=== PATIENT | male | born 1950 | race Caucasian/White ===

== ENCOUNTER 2021-02-18 17:37 | Inpatient (IN) | payer OTHER ==
[2021-02-18] MEDS ORDERED: ALBUTEROL SO4 2.5/IPRATROPIUM 0.5 INH SOL 3 ML VIAL.NEB. NEB ONE ×2 (18:22→18:29)
[2021-02-18] MEDS ORDERED: methylPREDNISolone NA SUCC 125 MG/2 ML VIAL IVPUSH ONE (18:22)
[2021-02-18] MEDS ORDERED: methylPREDNISolone NA SUCC 125 MG/2 ML VIAL ONE (18:28)
[2021-02-18 19:12] LABS: BASO % 0.2 % (0-2.0); HEMATOCRIT 33.6 % (35.4-49); HEMOGLOBIN 11.3 GM/dL (11.7-16.9); MCH 28.1 pg (25.7-33.7); MCHC 33.6 g/dl (32.0-35.9); MEAN CELL VOLUME 83.4 fl (80-96); MEAN PLT VOLUME 7.6 fl (7.5-11.1); MONO % 9.9 % (3.8-10.2); NEUT % 78.9 % (42.8-82.8); PLATELET COUNT 347 10^3/uL (134-434); RBC 4.03 M/mm3 (4.00-5.60); RDW 13.9 % (11.9-15.9); WHITE BLOOD COUNT 6.7 K/mm3 (4.0-10.0)
[2021-02-18 19:26] LABS: INR 1.04 (0.83-1.09); PROTHROMBIN TIME (PATIENT) 12.8 SEC (9.7-13.0)
[2021-02-18 19:29] LABS: ACTIVATED PTT 28.5 SECONDS (25.2-36.5)
[2021-02-18 19:49] LABS: CHLORIDE 103 mmol/L (98-107); SODIUM 138 mmol/L (136-145)
[2021-02-18 19:51] LABS: ALBUMIN 2.8 g/dl (3.4-5.0); BLOOD UREA NITROGEN 20.9 mg/dL (7-18)
[2021-02-18 19:52] LABS: ANION GAP 5 MMOL/L (8-16); CO2 30 mmol/L (21-32); GLUCOSE,RANDOM 102 mg/dL (74-106)
[2021-02-18 19:55] LABS: CREATININE 0.7 mg/dL (0.55-1.3); SGOT/AST 23 U/L (15-37); SGPT/ALT 17 U/L (13-61)
[2021-02-18 19:56] LABS: BILIRUBIN,TOTAL 0.1 mg/dL (0.2-1); TOT PROT 7.1 g/dl (6.4-8.2)
[2021-02-18 19:57] LABS: ALK PHOS 74 U/L (45-117)
[2021-02-19] MEDS ORDERED: ALBUTEROL SO4 2.5/IPRATROPIUM 0.5 INH SOL 3 ML VIAL.NEB. NEB PRN (05:30)
[2021-02-19] MEDS ORDERED: methylPREDNISolone NA SUCC 40 MG/1 ML VIAL IVPUSH SCH (06:00)
[2021-02-19 06:44] LABS: HEMOGLOBIN 11.2 GM/dL (11.7-16.9); MCHC 33.1 g/dl (32.0-35.9); MEAN CELL VOLUME 84.6 fl (80-96); MEAN PLT VOLUME 8.1 fl (7.5-11.1); PLATELET COUNT 348 10^3/uL (134-434); RBC 4.02 M/mm3 (4.00-5.60); WHITE BLOOD COUNT 3.9 K/mm3 (4.0-10.0)
[2021-02-19 07:12] LABS: ALBUMIN 2.7 g/dl (3.4-5.0); CALCIUM 9.2 mg/dL (8.5-10.1)
[2021-02-19 07:13] LABS: BLOOD UREA NITROGEN 26.5 mg/dL (7-18); MAGNESIUM 2.2 mg/dL (1.8-2.4)
[2021-02-19 07:15] LABS: CREATININE 0.9 mg/dL (0.55-1.3); PHOSPHOROUS 3.3 mg/dL (2.5-4.9)
[2021-02-19 07:17] LABS: BILIRUBIN,TOTAL 0.2 mg/dL (0.2-1); TOT PROT 7.1 g/dl (6.4-8.2)
[2021-02-19] MEDS ORDERED: DEXTROSE 50%-WATER - 25 GM/50 ML VIAL IVPUSH ONE (08:02)
[2021-02-19] MEDS ORDERED: INSULIN REGULAR HUMAN 100 UNITS/ML *VIAL IVPUSH ONE (08:02)
[2021-02-19 08:32] LABS: IRON SERUM 16 ug/dL (50-175); TOTAL IRON BINDING CAPACITY 322 ug/dL (250-450)
[2021-02-19] MEDS ORDERED: DEXTROSE 50%-WATER 25 GM/50 ML DISP.SYRIN ONE (09:20)
[2021-02-19] MEDS ORDERED: methylPREDNISolone NA SUCC 40 MG/1 ML VIAL ONE ×2 (09:21→18:04)
[2021-02-19 09:35] LABS: ANISOCYTOSIS 0; MACROCYTOSIS 0; PLATELET ESTIMATE NORMAL
[2021-02-19] MEDS ORDERED: BUDESONIDE/FORMETEROL FUMARATE 80/4.5 mcg INHALER IH SCH (10:00)
[2021-02-19] MEDS ORDERED: ENOXAPARIN NA (PORCINE) 40 MG/0.4 ML DISP.SYRIN SQ ONE (12:08)
[2021-02-19] MEDS: ENOXAPARIN NA (PORCINE) 40 MG/0.4 ML DISP.SYRIN SQ SCH (12:09)
[2021-02-19] MEDS ORDERED: ALBUTEROL SO4 0.083% IH SOL 2.5 MG/3 ML VIAL.NEB. NEB PRN (12:49)
[2021-02-19] MEDS ORDERED: ALBUTEROL SO4 0.083% IH SOL 2.5 MG/3 ML VIAL.NEB. NEB ONE (18:03)
[2021-02-19] MEDS ORDERED: ALBUTEROL SO4 2.5/IPRATROPIUM 0.5 INH SOL 3 ML VIAL.NEB. NEB ONE (18:04)
[2021-02-19] MEDS: methylPREDNISolone NA SUCC 40 MG/1 ML VIAL IVPUSH SCH (18:07)
[2021-02-19] MEDS: ALBUTEROL SO4 2.5/IPRATROPIUM 0.5 INH SOL 3 ML VIAL.NEB. NEB SCH ×2 (18:07→21:30)
[2021-02-19] MEDS ORDERED: methylPREDNISolone 2 MG TABLET PO SCH (22:00)
[2021-02-20] MEDS: methylPREDNISolone NA SUCC 40 MG/1 ML VIAL IVPUSH SCH ×2 (02:25→09:37)
[2021-02-20 07:07] LABS: HEMOGLOBIN 10.5 GM/dL (11.7-16.9); MCH 28.3 pg (25.7-33.7); MCHC 33.9 g/dl (32.0-35.9); MEAN CELL VOLUME 83.6 fl (80-96); MEAN PLT VOLUME 8.2 fl (7.5-11.1); PLATELET COUNT 334 10^3/uL (134-434); RBC 3.71 M/mm3 (4.00-5.60); RDW 13.7 % (11.9-15.9); WHITE BLOOD COUNT 13.6 K/mm3 (4.0-10.0)
[2021-02-20 07:35] LABS: ALBUMIN 2.6 g/dl (3.4-5.0); BLOOD UREA NITROGEN 34.1 mg/dL (7-18); CALCIUM 8.7 mg/dL (8.5-10.1); MAGNESIUM 2.2 mg/dL (1.8-2.4)
[2021-02-20 07:38] LABS: PHOSPHOROUS 3.3 mg/dL (2.5-4.9)
[2021-02-20 07:39] LABS: CREATININE 0.8 mg/dL (0.55-1.3)
[2021-02-20 07:40] LABS: BILIRUBIN,TOTAL 0.2 mg/dL (0.2-1); TOT PROT 6.7 g/dl (6.4-8.2)
[2021-02-20] MEDS: ALBUTEROL SO4 2.5/IPRATROPIUM 0.5 INH SOL 3 ML VIAL.NEB. NEB SCH ×4 (07:54→19:49)
[2021-02-20] MEDS ORDERED: INSULIN REGULAR HUMAN 100 UNITS/ML *VIAL IVPUSH ONE (08:16)
[2021-02-20] MEDS ORDERED: DEXTROSE 50%-WATER - 25 GM/50 ML VIAL IVPUSH ONE (08:30)
[2021-02-20 16:38] VITALS: BMI 15.0
[2021-02-20] MEDS ORDERED: methylPREDNISolone NA SUCC 40 MG/1 ML VIAL IVPUSH SCH (22:00)
[2021-02-21] MEDS: ALBUTEROL SO4 2.5/IPRATROPIUM 0.5 INH SOL 3 ML VIAL.NEB. NEB SCH ×4 (07:50→20:04)
[2021-02-21 08:25] LABS: HEMATOCRIT 37.1 % (35.4-49); HEMOGLOBIN 12.3 GM/dL (11.7-16.9); MCH 28.1 pg (25.7-33.7); MCHC 33.3 g/dl (32.0-35.9); MEAN CELL VOLUME 84.5 fl (80-96); MEAN PLT VOLUME 8.1 fl (7.5-11.1); PLATELET COUNT 393 10^3/uL (134-434); RBC 4.39 M/mm3 (4.00-5.60); RDW 14.1 % (11.9-15.9); WHITE BLOOD COUNT 14.3 K/mm3 (4.0-10.0)
[2021-02-21 08:44] LABS: ALBUMIN 2.9 g/dl (3.4-5.0); CALCIUM 8.7 mg/dL (8.5-10.1); MAGNESIUM 2.3 mg/dL (1.8-2.4)
[2021-02-21 08:47] LABS: CREATININE 0.8 mg/dL (0.55-1.3)
[2021-02-21 08:48] LABS: PHOSPHOROUS 2.6 mg/dL (2.5-4.9)
[2021-02-21 08:49] LABS: BILIRUBIN,TOTAL 0.3 mg/dL (0.2-1); TOT PROT 7.2 g/dl (6.4-8.2)
[2021-02-21] MEDS: ENOXAPARIN NA (PORCINE) 40 MG/0.4 ML DISP.SYRIN SQ SCH (09:47)
[2021-02-21] MEDS ORDERED: methylPREDNISolone NA SUCC 40 MG/1 ML VIAL IVPUSH SCH (10:00)
[2021-02-21] MEDS: methylPREDNISolone NA SUCC 40 MG/1 ML VIAL IVPUSH SCH (22:09)
[2021-02-22] MEDS: ALBUTEROL SO4 2.5/IPRATROPIUM 0.5 INH SOL 3 ML VIAL.NEB. NEB SCH ×4 (08:35→20:09)
[2021-02-22] MEDS: ENOXAPARIN NA (PORCINE) 40 MG/0.4 ML DISP.SYRIN SQ SCH (09:11)
[2021-02-22] MEDS: methylPREDNISolone NA SUCC 40 MG/1 ML VIAL IVPUSH SCH ×2 (09:11→22:02)
[2021-02-22 09:17] LABS: HEMATOCRIT 35.1 % (35.4-49); HEMOGLOBIN 11.4 GM/dL (11.7-16.9); MCH 27.8 pg (25.7-33.7); MCHC 32.6 g/dl (32.0-35.9); MEAN CELL VOLUME 85.3 fl (80-96); RBC 4.12 M/mm3 (4.00-5.60); WHITE BLOOD COUNT 11.3 K/mm3 (4.0-10.0)
[2021-02-22 09:18] LABS: BASO % 0.1 % (0-2.0); LYMPH % 5.5 % (8-40); MEAN PLT VOLUME 8.1 fl (7.5-11.1); MONO % 4.5 % (3.8-10.2); NEUT % 89.9 % (42.8-82.8); PLATELET COUNT 341 10^3/uL (134-434); RDW 14.2 % (11.9-15.9)
[2021-02-22 09:53] LABS: GLUCOSE,RANDOM 97 mg/dL (74-106)
[2021-02-22 09:54] LABS: BLOOD UREA NITROGEN 21.2 mg/dL (7-18); CALCIUM 8.6 mg/dL (8.5-10.1); CHLORIDE 101 mmol/L (98-107); CO2 31 mmol/L (21-32); CREATININE 0.8 mg/dL (0.55-1.3); SODIUM 138 mmol/L (136-145)
[2021-02-23 06:28] LABS: BASO % 0.2 % (0-2.0); HEMATOCRIT 35.3 % (35.4-49); HEMOGLOBIN 11.5 GM/dL (11.7-16.9); MCH 27.6 pg (25.7-33.7); MCHC 32.5 g/dl (32.0-35.9); MEAN CELL VOLUME 84.8 fl (80-96); MEAN PLT VOLUME 7.7 fl (7.5-11.1); MONO % 4.7 % (3.8-10.2); NEUT % 90.1 % (42.8-82.8); PLATELET COUNT 363 10^3/uL (134-434); RBC 4.17 M/mm3 (4.00-5.60); RDW 14.6 % (11.9-15.9); WHITE BLOOD COUNT 13.2 K/mm3 (4.0-10.0)
[2021-02-23 06:47] LABS: CALCIUM 8.7 mg/dL (8.5-10.1)
[2021-02-23 06:48] LABS: ALBUMIN 2.6 g/dl (3.4-5.0); BLOOD UREA NITROGEN 21.8 mg/dL (7-18); MAGNESIUM 2.5 mg/dL (1.8-2.4)
[2021-02-23 06:51] LABS: CREATININE 0.8 mg/dL (0.55-1.3)
[2021-02-23 06:52] LABS: BILIRUBIN,TOTAL 0.3 mg/dL (0.2-1); TOT PROT 6.4 g/dl (6.4-8.2)
[2021-02-23] MEDS: ALBUTEROL SO4 2.5/IPRATROPIUM 0.5 INH SOL 3 ML VIAL.NEB. NEB SCH ×4 (07:20→20:10)
[2021-02-23] MEDS ORDERED: DEXTROSE 50%-WATER - 25 GM/50 ML VIAL IVPUSH ONE (07:30)
[2021-02-23] MEDS ORDERED: INSULIN REGULAR HUMAN 100 UNITS/ML *VIAL IVPUSH ONE (07:30)
[2021-02-23] MEDS ORDERED: DEXTROSE 50%-WATER 25 GM/50 ML DISP.SYRIN ONE (09:34)
[2021-02-23] MEDS: methylPREDNISolone NA SUCC 40 MG/1 ML VIAL IVPUSH SCH ×2 (09:36→21:03)
[2021-02-24 07:42] LABS: HEMATOCRIT 37.1 % (35.4-49); HEMOGLOBIN 12.5 GM/dL (11.7-16.9); MCH 28.4 pg (25.7-33.7); MCHC 33.6 g/dl (32.0-35.9); MEAN CELL VOLUME 84.3 fl (80-96); MEAN PLT VOLUME 7.7 fl (7.5-11.1); PLATELET COUNT 382 10^3/uL (134-434); RDW 14.3 % (11.9-15.9); WHITE BLOOD COUNT 10.1 K/mm3 (4.0-10.0)
[2021-02-24 08:02] LABS: ALBUMIN 2.7 g/dl (3.4-5.0)
[2021-02-24 08:03] LABS: MAGNESIUM 2.3 mg/dL (1.8-2.4)
[2021-02-24 08:05] LABS: BILIRUBIN,TOTAL 0.2 mg/dL (0.2-1); CREATININE 0.8 mg/dL (0.55-1.3); PHOSPHOROUS 3.8 mg/dL (2.5-4.9)
[2021-02-24 08:06] LABS: TOT PROT 6.7 g/dl (6.4-8.2)
[2021-02-24 08:10] LABS: BLOOD UREA NITROGEN 25.6 mg/dL (7-18)
[2021-02-24] MEDS: ALBUTEROL SO4 2.5/IPRATROPIUM 0.5 INH SOL 3 ML VIAL.NEB. NEB SCH ×4 (08:36→19:58)
[2021-02-24] MEDS: methylPREDNISolone NA SUCC 40 MG/1 ML VIAL IVPUSH SCH (09:52)
[2021-02-24] MEDS ORDERED: DEXTROSE 50%-WATER - 25 GM/50 ML VIAL IVPUSH ONE (15:10)
[2021-02-24] MEDS ORDERED: INSULIN REGULAR HUMAN 100 UNITS/ML *VIAL IVPUSH ONE (15:10)
[2021-02-24] MEDS ORDERED: DEXTROSE 50%-WATER - 25 GM/50 ML VIAL ONE (17:36)
[2021-02-24] MEDS: methylPREDNISolone 4 MG TABLET PO SCH (21:16)
[2021-02-25 06:42] LABS: BASO % 0.2 % (0-2.0); EOS % 0.1 % (0-4.5); HEMATOCRIT 36.2 % (35.4-49); HEMOGLOBIN 11.9 GM/dL (11.7-16.9); LYMPH % 6.6 % (8-40); MCH 27.8 pg (25.7-33.7); MCHC 32.8 g/dl (32.0-35.9); MEAN CELL VOLUME 84.6 fl (80-96); MEAN PLT VOLUME 7.7 fl (7.5-11.1); NEUT % 85.1 % (42.8-82.8); PLATELET COUNT 373 10^3/uL (134-434); RBC 4.28 M/mm3 (4.00-5.60); RDW 14.5 % (11.9-15.9); WHITE BLOOD COUNT 12.5 K/mm3 (4.0-10.0)
[2021-02-25 07:10] LABS: CALCIUM 8.8 mg/dL (8.5-10.1)
[2021-02-25 07:11] LABS: ALBUMIN 2.7 g/dl (3.4-5.0); MAGNESIUM 2.2 mg/dL (1.8-2.4)
[2021-02-25 07:14] LABS: CREATININE 0.9 mg/dL (0.55-1.3); PHOSPHOROUS 3.5 mg/dL (2.5-4.9)
[2021-02-25 07:15] LABS: BILIRUBIN,TOTAL 0.2 mg/dL (0.2-1); TOT PROT 6.5 g/dl (6.4-8.2)
[2021-02-25] MEDS ORDERED: INSULIN REGULAR HUMAN 100 UNITS/ML *VIAL IVPUSH ONE (07:22)
[2021-02-25] MEDS ORDERED: DEXTROSE 50%-WATER - 25 GM/50 ML VIAL IVPUSH ONE (07:22)
[2021-02-25] MEDS: ALBUTEROL SO4 2.5/IPRATROPIUM 0.5 INH SOL 3 ML VIAL.NEB. NEB SCH ×4 (08:00→20:02)
[2021-02-25] MEDS ORDERED: DEXTROSE 50%-WATER 25 GM/50 ML DISP.SYRIN ONE (09:12)
[2021-02-25] MEDS ORDERED: guaiFENesin/D-METHORPHAN HB 10 ML UNIT-DOSE CUPS PO PRN (09:31)
[2021-02-25] MEDS: PANTOPRAZOLE 40 MG TABLET PO SCH (11:21)
[2021-02-25] MEDS: ENOXAPARIN NA (PORCINE) 40 MG/0.4 ML DISP.SYRIN SQ SCH (11:21)
[2021-02-25] MEDS ORDERED: methylPREDNISolone 2 MG TABLET PO SCH ×2 (12:15→13:00)
[2021-02-25] MEDS: methylPREDNISolone 4 MG TABLET PO SCH (14:48)
[2021-02-26] MEDS: ALBUTEROL SO4 2.5/IPRATROPIUM 0.5 INH SOL 3 ML VIAL.NEB. NEB SCH ×4 (07:45→20:15)
[2021-02-26 08:02] LABS: HEMATOCRIT 35.1 % (35.4-49); HEMOGLOBIN 11.6 GM/dL (11.7-16.9); MCH 28.1 pg (25.7-33.7); MCHC 33.1 g/dl (32.0-35.9); MEAN CELL VOLUME 84.8 fl (80-96); MEAN PLT VOLUME 7.8 fl (7.5-11.1); PLATELET COUNT 370 10^3/uL (134-434); RBC 4.14 M/mm3 (4.00-5.60); RDW 14.5 % (11.9-15.9); WHITE BLOOD COUNT 10.6 K/mm3 (4.0-10.0)
[2021-02-26 08:14] LABS: ALBUMIN 2.6 g/dl (3.4-5.0); CALCIUM 8.4 mg/dL (8.5-10.1)
[2021-02-26 08:15] LABS: MAGNESIUM 2.4 mg/dL (1.8-2.4)
[2021-02-26 08:18] LABS: CREATININE 0.8 mg/dL (0.55-1.3); PHOSPHOROUS 3.7 mg/dL (2.5-4.9)
[2021-02-26 08:19] LABS: BILIRUBIN,TOTAL 0.2 mg/dL (0.2-1); TOT PROT 6.2 g/dl (6.4-8.2)
[2021-02-26] MEDS ORDERED: PT OWN MED DRAWER 7, Y5N ONE (10:21)
[2021-02-26] MEDS: ENOXAPARIN NA (PORCINE) 40 MG/0.4 ML DISP.SYRIN SQ SCH (10:28)
[2021-02-26] MEDS: PANTOPRAZOLE 40 MG TABLET PO SCH (10:29)
[2021-02-26] MEDS: methylPREDNISolone 4 MG TABLET PO SCH (10:29)
[2021-02-27 06:28] LABS: HEMATOCRIT 34.4 % (35.4-49); HEMOGLOBIN 11.5 GM/dL (11.7-16.9); MCH 28.4 pg (25.7-33.7); MCHC 33.4 g/dl (32.0-35.9); MEAN PLT VOLUME 7.9 fl (7.5-11.1); PLATELET COUNT 385 10^3/uL (134-434); RBC 4.04 M/mm3 (4.00-5.60); RDW 14.5 % (11.9-15.9); WHITE BLOOD COUNT 10.4 K/mm3 (4.0-10.0)
[2021-02-27 06:48] LABS: ALBUMIN 2.6 g/dl (3.4-5.0); BLOOD UREA NITROGEN 25.3 mg/dL (7-18); MAGNESIUM 2.5 mg/dL (1.8-2.4)
[2021-02-27 06:52] LABS: CREATININE 0.8 mg/dL (0.55-1.3); PHOSPHOROUS 3.6 mg/dL (2.5-4.9)
[2021-02-27 06:53] LABS: BILIRUBIN,TOTAL 0.2 mg/dL (0.2-1); TOT PROT 6.3 g/dl (6.4-8.2)
[2021-02-27] MEDS: ALBUTEROL SO4 2.5/IPRATROPIUM 0.5 INH SOL 3 ML VIAL.NEB. NEB SCH ×4 (07:40→19:49)
[2021-02-27] MEDS ORDERED: PT OWN MED DRAWER 7, Y5N ONE (08:55)
[2021-02-27] MEDS: PANTOPRAZOLE 40 MG TABLET PO SCH (09:26)
[2021-02-27] MEDS: ENOXAPARIN NA (PORCINE) 40 MG/0.4 ML DISP.SYRIN SQ SCH (09:26)
[2021-02-27] MEDS: methylPREDNISolone 4 MG TABLET PO SCH (09:27)
[2021-02-27] MEDS ORDERED: SENNOSIDES 8.8 MG/5 ML BULK BOTTLE PO PRN (10:03)
[2021-02-27] MEDS: POLYETHYLENE GLYCOL (HEALTHYLAX) 3350 17 GM PACKET PO SCH (10:52)
[2021-02-28] MEDS: ALBUTEROL SO4 2.5/IPRATROPIUM 0.5 INH SOL 3 ML VIAL.NEB. NEB SCH ×4 (08:36→20:21)
[2021-02-28] MEDS: ENOXAPARIN NA (PORCINE) 40 MG/0.4 ML DISP.SYRIN SQ SCH (09:12)
[2021-02-28] MEDS: POLYETHYLENE GLYCOL (HEALTHYLAX) 3350 17 GM PACKET PO SCH (09:12)
[2021-02-28] MEDS: PANTOPRAZOLE 40 MG TABLET PO SCH (09:13)
[2021-02-28 09:50] LABS: HEMATOCRIT 40.2 % (35.4-49); HEMOGLOBIN 13.3 GM/dL (11.7-16.9); MCH 28.5 pg (25.7-33.7); MCHC 33.2 g/dl (32.0-35.9); MEAN CELL VOLUME 85.9 fl (80-96); MEAN PLT VOLUME 7.9 fl (7.5-11.1); PLATELET COUNT 462 10^3/uL (134-434); RBC 4.68 M/mm3 (4.00-5.60); RDW 14.4 % (11.9-15.9); WHITE BLOOD COUNT 12.7 K/mm3 (4.0-10.0)
[2021-02-28 10:23] LABS: CALCIUM 9.2 mg/dL (8.5-10.1)
[2021-02-28 10:24] LABS: ALBUMIN 3.2 g/dl (3.4-5.0); BLOOD UREA NITROGEN 22.6 mg/dL (7-18); MAGNESIUM 2.3 mg/dL (1.8-2.4)
[2021-02-28 10:27] LABS: PHOSPHOROUS 4.1 mg/dL (2.5-4.9)
[2021-02-28 10:28] LABS: BILIRUBIN,TOTAL 0.3 mg/dL (0.2-1)
[2021-02-28 10:29] LABS: TOT PROT 7.7 g/dl (6.4-8.2)
[2021-02-28 10:32] LABS: CREATININE 0.8 mg/dL (0.55-1.3)
[2021-02-28] MEDS ORDERED: PT OWN MED DRAWER 7, Y5N ONE (21:12)
[2021-02-28] MEDS: SODIUM ZIRCONIUM CYCLOSILICATE (LOKELMA) 5 GM PACKET PO SCH (21:35)
[2021-03-01] MEDS: ALBUTEROL SO4 2.5/IPRATROPIUM 0.5 INH SOL 3 ML VIAL.NEB. NEB SCH ×4 (08:13→20:23)
[2021-03-01 08:40] LABS: MCH 28.4 pg (25.7-33.7); MCHC 33.3 g/dl (32.0-35.9); MEAN CELL VOLUME 85.3 fl (80-96); MEAN PLT VOLUME 7.4 fl (7.5-11.1); PLATELET COUNT 412 10^3/uL (134-434); RBC 4.22 M/mm3 (4.00-5.60); RDW 14.6 % (11.9-15.9); WHITE BLOOD COUNT 13.1 K/mm3 (4.0-10.0)
[2021-03-01 09:07] LABS: ALBUMIN 2.8 g/dl (3.4-5.0); BLOOD UREA NITROGEN 22.2 mg/dL (7-18); CALCIUM 8.7 mg/dL (8.5-10.1); MAGNESIUM 2.3 mg/dL (1.8-2.4)
[2021-03-01 09:10] LABS: CREATININE 0.8 mg/dL (0.55-1.3); PHOSPHOROUS 3.8 mg/dL (2.5-4.9)
[2021-03-01 09:12] LABS: BILIRUBIN,TOTAL 0.5 mg/dL (0.2-1); TOT PROT 6.8 g/dl (6.4-8.2)
[2021-03-01] MEDS ORDERED: PT OWN MED DRAWER 7, Y5N ONE (09:25)
[2021-03-01] MEDS: PANTOPRAZOLE 40 MG TABLET PO SCH (09:48)
[2021-03-01] MEDS: ENOXAPARIN NA (PORCINE) 40 MG/0.4 ML DISP.SYRIN SQ SCH (09:50)
[2021-03-01] MEDS: SODIUM ZIRCONIUM CYCLOSILICATE (LOKELMA) 5 GM PACKET PO SCH (09:50)
[2021-03-01] MEDS: POLYETHYLENE GLYCOL (HEALTHYLAX) 3350 17 GM PACKET PO SCH (09:53)
[2021-03-02 06:21] LABS: HEMATOCRIT 33.8 % (35.4-49); HEMOGLOBIN 11.2 GM/dL (11.7-16.9); MCH 28.3 pg (25.7-33.7); MCHC 33.2 g/dl (32.0-35.9); MEAN CELL VOLUME 85.2 fl (80-96); MEAN PLT VOLUME 7.5 fl (7.5-11.1); PLATELET COUNT 369 10^3/uL (134-434); RBC 3.96 M/mm3 (4.00-5.60); WHITE BLOOD COUNT 10.2 K/mm3 (4.0-10.0)
[2021-03-02 06:49] LABS: ALBUMIN 2.3 g/dl (3.4-5.0); BLOOD UREA NITROGEN 18.9 mg/dL (7-18)
[2021-03-02 06:52] LABS: CREATININE 0.7 mg/dL (0.55-1.3)
[2021-03-02 06:53] LABS: PHOSPHOROUS 3.6 mg/dL (2.5-4.9)
[2021-03-02 06:54] LABS: BILIRUBIN,TOTAL 0.4 mg/dL (0.2-1); TOT PROT 6.1 g/dl (6.4-8.2)
[2021-03-02] MEDS: ENOXAPARIN NA (PORCINE) 40 MG/0.4 ML DISP.SYRIN SQ SCH ×2 (08:21→09:31)
[2021-03-02] MEDS: PANTOPRAZOLE 40 MG TABLET PO SCH ×2 (08:22→09:31)
[2021-03-02] MEDS: ALBUTEROL SO4 2.5/IPRATROPIUM 0.5 INH SOL 3 ML VIAL.NEB. NEB SCH ×4 (08:25→20:08)
[2021-03-02] MEDS: POLYETHYLENE GLYCOL (HEALTHYLAX) 3350 17 GM PACKET PO SCH (09:31)
[2021-03-03] MEDS: ALBUTEROL SO4 2.5/IPRATROPIUM 0.5 INH SOL 3 ML VIAL.NEB. NEB SCH ×3 (08:19→16:30)
[2021-03-03] MEDS: PANTOPRAZOLE 40 MG TABLET PO SCH (10:19)
[2021-03-03] MEDS: ENOXAPARIN NA (PORCINE) 40 MG/0.4 ML DISP.SYRIN SQ SCH (10:19)
[2021-03-03] MEDS: POLYETHYLENE GLYCOL (HEALTHYLAX) 3350 17 GM PACKET PO SCH (10:20)
[2021-03-03 13:27] VITALS: BP 92/51; PULSE 87; TEMP 98.5
== END 2021-03-03 18:24 | disposition home or self-care (01) | DRG 180 ==
LOC: JER 17:37 → JERBED 20:12 → J4S 02-19 20:08
PROVIDERS: ADMIT Internal Medicine; ATTEND Internal Medicine
PROC: 0W9930Z Drainage of Right Pleural Cavity with Drainage Device, Percutaneous Approach (ICD-10-PCS; principal; 2021-02-24)
PROC: 0BBF3ZX Excision of Right Lower Lung Lobe, Percutaneous Approach, Diagnostic (ICD-10-PCS; 2021-02-24)
DX: C34.91 Malignant neoplasm of unspecified part of right bronchus or lung (principal); E43 Unspecified severe protein-calorie malnutrition; J44.1 Chronic obstructive pulmonary disease with (acute) exacerbation; R64 Cachexia; Z68.1 Body mass index [BMI] 19.9 or less, adult; J44.0 Chronic obstructive pulmonary disease with (acute) lower respiratory infection; J93.9 Pneumothorax, unspecified; R04.2 Hemoptysis; E87.5 Hyperkalemia; D50.9 Iron deficiency anemia, unspecified
CPT/HCPCS: 32408; 32557; 36415; 71045-TC-FY; 71046-TC-FY; 71250-TC; 71275-TC; 74177-TC; 74240-TC-FY; 76882-TC-RT-FY; 76942-TC; 77012-TC; 80048; 80053; 82550; 82962; 83540; 83550; 83735; 84100; 84132; 84484; 85025; 85027; 85045; 85379; 85610; 85730; 88305-TC; 93005; 93010; 94640; 94761; 99285-25; C1729; C9803; Q9967; U0003; U0005